=== PATIENT | male | born 1955 | race Caucasian/White ===

== ENCOUNTER 2016-07-10 21:22 | Emergency (ER) | payer OTHER ==
[~2016-07-10 21:22] MED LIST: LASIX PO; LISINOPRIL PO; PLAVIX PO; POTASSIUM CHLO10 ME1 PO; TOPROL XL PO
== END 2016-07-10 21:36 | disposition home or self-care (01) ==
LOC: SED 21:22
DX: K02.9 Dental caries, unspecified (principal); K04.01 Reversible pulpitis; F17.210 Nicotine dependence, cigarettes, uncomplicated; Z79.899 Other long term (current) drug therapy
CPT/HCPCS: 99283